=== PATIENT | female | born 1940 | race Caucasian/White ===

== ENCOUNTER 2021-12-22 16:24 | Outpatient (REF) | payer MEDICARE, SELFPAY | END 2021-12-22 16:25 | disposition home or self-care (01) | LOC: HO.LNP 16:24 | PROVIDERS: Visit Provider Nurse Practitioner Family | DX: N39.0 Urinary tract infection, site not specified (principal) | CPT/HCPCS: 87086; 87088; 87186 ==

== ENCOUNTER 2022-07-24 07:40 | Day surgery (SDC) | payer MEDICARE, SELFPAY ==
[2022-07-18 16:13] VITALS: BMI 28.5
--- NOTE | 2022-07-20 13:14 | MHC.SHP ---
Pre-Procedural Eval Section A Date of Service: 07/20/22 The patient is an INPATIENT: No Changes since office visit: No Cold of Flu in the past 2 weeks, No New Medical Problems, No Changes in Medication and No Patient answered all questions The History & Physical has been completed within 30 days and I have reviewed it.: Yes Section B Chief Complaint: Age-related nuclear cataract, right eye Allergies: Allergies Allergy/AdvReac Type Severity Reaction Status Date / Time aspirin AdvReac Gastrointestinal Verified 07/18/22 16:10 Upset pregabalin [From Lyrica] AdvReac Dizziness Verified 07/18/22 16:10 Plan Diagnosis/Plan: Unchanged I have reviewed the history and physical and performed a pertinent physical examination on my patient. No changes have occurred unless specified. Time Spent With Patient Time: Total time managing care of this patient today ____ minutes.
--- NOTE | 2022-07-21 09:58 | HO.ANESPROP2 ---
Documented by User: Sirena Kelly NP 07/21/22 09:58 HPI - Anesthesia Eval Consult details Narrative: 81yo F for Right Cataract Extraction IOL Insertion PCP cleared No previous cataract PMFSH Active Problems Active Problems: All Active Problems (Updated 07/18/22 @ 16:13 by Holly Garg, JAYSON) UTI (urinary tract infection) (Acute) Past Medical History Medical History (Updated 07/18/22 @ 16:13 by Holly Garg RN) Cataracts, bilateral Elevated cholesterol Hx: UTI (urinary tract infection) Seasonal allergies Surgical History Surgical History (Updated 07/18/22 @ 16:11 by Holly Garg RN) History of pubovaginal sling Hx of cardiac catheterization Hx of colonoscopy Social History Social History (Updated 07/18/22 @ 16:11 by Holly Garg RN) Are you a primary home care and home health aides teacher to a significant other at home: No Do you presently have visiting nurse or other home services: No Patient Tobacco Use Status: Former Tobacco user Quit Date: Tobacco use type: Cigarette Have you been hit, kicked, punched, or otherwise hurt by someone within the past year? If so, by whom?: No Are you DNR?: No Advance Directives: No Advance Directives Information Provided: Yes Advance Directives on File: No Recently lost weight without trying: No Nutrition Risks: Surgical patient >75years Meds Allergies Allergy/AdvReac Type Severity Reaction Status Date / Time aspirin AdvReac Gastrointestinal Verified 07/24/22 08:24 Upset pregabalin [From Lyrica] AdvReac Dizziness Verified 07/24/22 08:24 Home Medications Medication Instructions Recorded Confirmed Last Taken Type atorvastatin 20 mg tablet 40 mg PO DAILY 12/22/21 07/24/22 07/24/22 History duloxetine 30 mg capsule,delayed 30 mg PO BID 12/22/21 07/24/22 07/24/22 History release omeprazole 20 mg capsule,delayed 20 mg PO DAILY 12/22/21 07/24/22 Unknown History release ipratropium bromide 21 mcg (0.03 2 spray intranasal TID 07/18/22 07/24/22 Unknown History %) nasal spray Exam Exam Date and Time: July 21, 2022 0958 Height,Weight and Vital Signs: Height 5 ft 3 in Weight 73.028 kg Assessment and Plan Assessment Anesthesia Assessment: Chart Reviewed Documented by User: Avel Bellamy MD 07/24/22 18:08 [facility] Past Medical History Medical History (Updated 07/18/22 @ 16:13 by Holly Garg, RN) Cataracts, bilateral Elevated cholesterol Hx: UTI (urinary tract infection) Seasonal allergies Functional capacity: independent ambulation Family History Family history of problems with anesthesia: No Surgical History Surgical History (Updated 07/18/22 @ 16:11 by Holly Garg, RN) History of pubovaginal sling Hx of cardiac catheterization Hx of colonoscopy History of Problems with Anesthesia: No Social History Social History (Updated 07/18/22 @ 16:11 by Holly Garg, RN) Are you a primary home care and home health aides teacher to a significant other at home: No Do you presently have visiting nurse or other home services: No Patient Tobacco Use Status: Former Tobacco user Quit Date: Tobacco use type: Cigarette Have you been hit, kicked, punched, or otherwise hurt by someone within the past year? If so, by whom?: No Are you DNR?: No Advance Directives: No Advance Directives Information Provided: Yes Advance Directives on File: No Recently lost weight without trying: No Nutrition Risks: Surgical patient >75years Meds Allergies Allergy/AdvReac Type Severity Reaction Status Date / Time aspirin AdvReac Gastrointestinal Verified 07/24/22 08:24 Upset pregabalin [From Lyrica] AdvReac Dizziness Verified 07/24/22 08:24 Home Medications Medication Instructions Recorded Confirmed Last Taken Type atorvastatin 20 mg tablet 40 mg PO DAILY 12/22/21 07/24/22 07/24/22 History duloxetine 30 mg capsule,delayed 30 mg PO BID 12/22/21 07/24/22 07/24/22 History release omeprazole 20 mg capsule,delayed 20 mg PO DAILY 12/22/21 07/24/22 Unknown History release ipratropium bromide 21 mcg (0.03 2 spray intranasal TID 07/18/22 07/24/22 Unknown History %) nasal spray Exam Airway Mallampati Class: III TM Dist: >3cm Neck ROM: Full Loose/Missing/Broken Teeth: Yes (multiple chipped ) Assessment and Plan Assessment Anesthesia Assessment: Anesthesia Plan Discussed Final Anesthetic Review Family History of Problems with Anesthesia: No History of Problems with Anesthesia: No NPO: Yes ASA Class: II Final Preanesthetic Review: Meds/Allgs Chart Reviewed, Consent Obtained/Reviewed and Anes Risks/Benef Reviewed Patient Risk: Intermediate Procedure Risk: Intermediate Anesthetic Plan Anesthetic Plan: MAC: and Agree w/ Assess. and Plan Disposition: Standard PACU
[2022-07-24 08:20] VITALS: BP 113/67; PULSE 69; RESP 16; TEMP 36.4; O2SAT 97
[2022-07-24] MEDS: Tetracaine HCl/PF 0.5% Oph Sol 4 ML DROPS 1 DROP EYE-RIGHT (08:23)
[2022-07-24] MEDS: Cyclopentolate 1 % Ophth Sol 2 ML DRPBTL 1 DROP EYE-RIGHT ×3 (08:24→08:40)
[2022-07-24] MEDS: Ketorolac Tromethamine 0.5% Op 5 ML DROPS 1 DROP EYE-RIGHT ×3 (08:28→08:44)
[2022-07-24] MEDS: Phenylephrine HCL 2.5% Oph SoL 2 ML BOTTLE 1 DROP EYE-RIGHT ×3 (08:30→08:46)
[2022-07-24] MEDS: Lactated Ringers 500 ML 50 ML IV (08:32)
--- NOTE | 2022-07-24 09:51 | HO.PNOPHT ---
Ophthalmology Procedure Procedure Date of Service: 07/24/22 Ophthalmology Viscoelastic: Mirtha Kunzt Dual Pack Pro Ophthalmology Lenses: TECANGLE [id number] (18) Procedure Notes: PREOPERATIVE DIAGNOSIS: Decreased visual acuity right eye secondary to cataract POSTOPERATIVE DIAGNOSIS: Same PROCEDURE: Right cataract extraction with intraocular lens insertion SURGEON: Frankie Black M.D. ANESTHESIA: Topical/MAC ESTIMATED BLOOD LOSS: None COMPLICATIONS: None After obtaining informed consent, the patient was brought to the operating room suite and placed in the supine position. After adequate sedation per anesthesia, topical drops of Tetracaine were given to the right eye. The eye was then prepped and draped in the usual sterile fashion. The operating room microscope was then positioned over the operative eye and a lid speculum placed. A paracentesis was created. Viscoelastic was then instilled into the anterior chamber. A three plane incision was then created temporally, utilizing a 2.85 mm keratome. Capsulotomy forceps were then utilized to create a circular tear capsulotomy. Hydrodissection and hydrodelineation were carried out until adequate mobilization of the nucleus occurred. Phacoemulsification was then utilized to remove the dense central nucleus followed by removal of the cortical material utilizing the automated aspiration irrigation unit. Viscoelastic was instilled into the posterior capsular bag followed by placement of a posterior chamber intraocular lens without difficulty. The residual Viscoelastic was then removed utilizing the automated IA machine. The wound was checked and found to be watertight. The patient tolerated the procedure well and the lid speculum was removed. Intracameral injection of Vigamox 0.1 mL followed by a subtenon injection of Kenalog-40 0.2 mL were administered. The patient will be seen in the a.m.
[2022-07-24 10:15] VITALS: BP 100/58; PULSE 65; RESP 16; TEMP 36.1; O2SAT 95
== END 2022-07-24 10:28 | disposition home or self-care (01) ==
PROVIDERS: PCP Internal Medicine; Visit Provider Ophthalmology
PROC: (CPT 66985; principal; 2022-07-24 09:50)
DX: H25.11 Age-related nuclear cataract, right eye (principal); H52.4 Presbyopia; H33.321 Round hole, right eye; H18.413 Arcus senilis, bilateral; M79.7 Fibromyalgia; E78.00 Pure hypercholesterolemia, unspecified; F41.1 Generalized anxiety disorder; R42 Dizziness and giddiness; Z79.899 Other long term (current) drug therapy; Z88.8 Allergy status to other drugs, medicaments and biological substances
CPT/HCPCS: 66984; J2250; J3010; J3301; V2632

== ENCOUNTER 2022-08-07 08:13 | Day surgery (SDC) | payer MEDICARE, SELFPAY ==
[2022-07-18 16:16] VITALS: BMI 28.5
--- NOTE | 2022-08-04 08:12 | MHC.SHP ---
Pre-Procedural Eval Section A Date of Service: 08/04/22 The patient is an INPATIENT: No Changes since office visit: No Cold of Flu in the past 2 weeks, No New Medical Problems, No Changes in Medication and No Patient answered all questions The History & Physical has been completed within 30 days and I have reviewed it.: Yes Section B Chief Complaint: Age-related nuclear cataract, left eye Allergies: Allergies Allergy/AdvReac Type Severity Reaction Status Date / Time aspirin AdvReac Gastrointestinal Verified 07/24/22 08:24 Upset pregabalin [From Lyrica] AdvReac Dizziness Verified 07/24/22 08:24 Plan Diagnosis/Plan: Unchanged I have reviewed the history and physical and performed a pertinent physical examination on my patient. No changes have occurred unless specified. Time Spent With Patient Time: Total time managing care of this patient today ____ minutes.
--- NOTE | 2022-08-04 09:35 | P.CONAN_ITS ---
Documented by User: Sirena Kelly NP 08/04/22 09:36 HPI - Anesthesia Eval Consult details Narrative: 81yo F for Left Cataract Multifocal with IOL Insertion PCP cleared Right eye 07/24/22 with TIVA: Fent 50, Midaz 0.5 PMFSH Active Problems Active Problems: All Active Problems (Updated 07/18/22 @ 16:13 by Holly Garg RN) UTI (urinary tract infection) (Acute) Past Medical History Medical History Cataracts, bilateral Elevated cholesterol Hx: UTI (urinary tract infection) Seasonal allergies Family History Family history of problems with anesthesia: No Surgical History Surgical History History of pubovaginal sling Hx of cardiac catheterization Hx of colonoscopy History of Problems with Anesthesia: No Social History Social History Are you a primary day care director to a significant other at home: No Do you presently have visiting nurse or other home services: No Patient Tobacco Use Status: Former Tobacco user Quit Date: Tobacco use type: Cigarette Use of substances other than those prescribed or required for medical reasons: No Have you been hit, kicked, punched, or otherwise hurt by someone within the past year? If so, by whom?: No Are you DNR?: No Advance Directives: No Advance Directives Information Provided: Yes Advance Directives on File: No Recently lost weight without trying: No Nutrition Risks: Surgical patient >75years Meds Allergies Allergy/AdvReac Type Severity Reaction Status Date / Time aspirin AdvReac Gastrointestinal Verified 08/07/22 08:38 Upset pregabalin [From Lyrica] AdvReac Dizziness Verified 08/07/22 08:38 Home Medications Medication Instructions Recorded Confirmed Last Taken Type atorvastatin 20 mg tablet 40 mg PO DAILY 12/22/21 08/07/22 08/07/22 07:30 History duloxetine 30 mg capsule,delayed 30 mg PO BID 12/22/21 08/07/22 08/07/22 07:30 H istory release omeprazole 20 mg capsule,delayed 20 mg PO DAILY 12/22/21 08/07/22 Unknown History release ipratropium bromide 21 mcg (0.03 2 spray intranasal TID 07/18/22 07/24/22 Unkno wn History %) nasal spray Exam Exam Date and Time: August 04, 2022 0935 Height,Weight and Vital Signs: Height 5 ft 3 in Weight 73.028 kg Assessment and Plan Assessment Anesthesia Assessment: Chart Reviewed Final Anesthetic Review Family History of Problems with Anesthesia: No History of Problems with Anesthesia: No Documented by User: Kay Santoyo MD 08/07/22 11:20 [facility] Past Medical History Medical History Cataracts, bilateral Elevated cholesterol Hx: UTI (urinary tract infection) Seasonal allergies Surgical History Surgical History History of pubovaginal sling Hx of cardiac catheterization Hx of colonoscopy Social History Social History Are you a primary day care director to a significant other at home: No Do you presently have visiting nurse or other home services: No Patient Tobacco Use Status: Former Tobacco user Quit Date: Tobacco use type: Cigarette Use of substances other than those prescribed or required for medical reasons: No Have you been hit, kicked, punched, or otherwise hurt by someone within the past year? If so, by whom?: No Are you DNR?: No Advance Directives: No Advance Directives Information Provided: Yes Advance Directives on File: No Recently lost weight without trying: No Nutrition Risks: Surgical patient >75years Meds Allergies Allergy/AdvReac Type Severity Reaction Status Date / Time aspirin AdvReac Gastrointestinal Verified 08/07/22 08:38 Upset pregabalin [From Lyrica] AdvReac Dizziness Verified 08/07/22 08:38 Home Medications Medication Instructions Recorded Confirmed Last Taken Type atorvastatin 20 mg tablet 40 mg PO DAILY 12/22/21 08/07/22 08/07/22 07:30 History duloxetine 30 mg capsule,delayed 30 mg PO BID 12/22/21 08/07/22 08/07/22 07:30 History release omeprazole 20 mg capsule,delayed 20 mg PO DAILY 12/22/21 08/07/22 Unknown History release ipratropium bromide 21 mcg (0.03 2 spray intranasal TID 07/18/22 07/24/22 Unknown History %) nasal spray Exam Airway Mallampati Class: II TM Dist: >3cm Neck ROM: Full Loose/Missing/Broken Teeth: No Heart: RRR Lungs: CTA Assessment and Plan Assessment Anesthesia Assessment: Anesthesia Plan Discussed Final Anesthetic Review NPO: Yes ASA Class: II Final Preanesthetic Review: Meds/Allgs Chart Reviewed, Consent Obtained/Reviewed and Anes Risks/Benef Reviewed Patient Risk: Low Procedure Risk: Low Anesthetic Plan Anesthetic Plan: MAC: Disposition: Standard PACU
[2022-08-07 10:35] VITALS: BP 139/62; PULSE 61; RESP 16; TEMP 36.1; O2SAT 96
[2022-08-07] MEDS: Tetracaine HCl/PF 0.5% Oph Sol 4 ML DROPS 1 DROP EYE-LEFT (10:43)
[2022-08-07] MEDS: Lactated Ringers 500 ML 50 ML IV (10:44)
[2022-08-07] MEDS: Cyclopentolate 1 % Ophth Sol 2 ML DRPBTL 1 DROP EYE-LEFT ×3 (10:45→10:56)
[2022-08-07] MEDS: Tropicamide 1 % Ophth Sol 3 ML BTL 1 DROP EYE-LEFT ×3 (10:46→10:57)
[2022-08-07] MEDS: Ketorolac Tromethamine 0.5% Op 5 ML DROPS 1 DROP EYE-LEFT ×3 (10:48→10:58)
[2022-08-07] MEDS: Phenylephrine HCL 2.5% Oph SoL 2 ML BOTTLE 1 DROP EYE-LEFT ×3 (10:50→11:00)
--- NOTE | 2022-08-07 11:29 | HO.PNOPHT ---
Ophthalmology Procedure Procedure Date of Service: 08/07/22 Ophthalmology Viscoelastic: Healon Duet Dual Pack Pro Ophthalmology Lenses: TECNIS [id number] (17.5) Procedure Notes: PREOPERATIVE DIAGNOSIS: Decreased visual acuity left eye secondary to cataract POSTOPERATIVE DIAGNOSIS: Same PROCEDURE: Left cataract extraction with intraocular lens insertion SURGEON: Frankie Black M.D. ANESTHESIA: Topical/MAC ESTIMATED BLOOD LOSS: None COMPLICATIONS: None After obtaining informed consent, the patient was brought to the operation room suite and placed in the supine position. After adequate sedation per anesthesia, topical drops of Tetracaine were given to the left eye. The eye was then prepped and draped in the usual sterile fashion. The operating room microscope was then positioned over the operative eye and a lid speculum placed. A paracentesis was created. Viscoelastic was then instilled into the anterior chamber. A three plane incision was then created temporally, utilizing a 2.85 mm keratome. Capsulotomy forceps were then utilized to create a circular tear capsulotomy. Hydrodissection and hydrodelineation were carried out until adequate mobilization of the nucleus occurred. Phacoemulsification was then utilized to remove the dense central nucleus followed by removal of the cortical material utilizing the automated aspiration irrigation unit. Viscoat elastic was instilled into the posterior capsular bag followed by placement of a posterior chamber intraocular lens without difficulty. The residual Viscoat elastic was then removed utilizing the automated IA machine. The wound was check and found to be watertight. The patient tolerated the procedure well and the lid speculum was removed. Intracameral injection of Vigamox 0.1 mL followed by a subtenon injection of Kenalog-40 0.2 mL were administered. The patient will be seen in the a.m.
[2022-08-07 11:49] VITALS: BP 129/50; PULSE 54; RESP 16; TEMP 36.4; O2SAT 100
[2022-08-07] MEDS: Acetaminophen 325 MG TABLET 650 MG PO (11:57)
== END 2022-08-07 11:59 | disposition home or self-care (01) ==
PROVIDERS: PCP Internal Medicine; Visit Provider Ophthalmology
PROC: (CPT 66985; principal; 2022-08-07 11:30)
DX: H25.12 Age-related nuclear cataract, left eye (principal); H52.4 Presbyopia; H31.002 Unspecified chorioretinal scars, left eye; H18.413 Arcus senilis, bilateral; H15.0 Scleritis; E78.00 Pure hypercholesterolemia, unspecified; F41.1 Generalized anxiety disorder; M79.7 Fibromyalgia; R42 Dizziness and giddiness; Z79.899 Other long term (current) drug therapy; Z88.8 Allergy status to other drugs, medicaments and biological substances
CPT/HCPCS: 66984; J2250; J3010; J3301; V2632